=== PATIENT | female | born 1975 | race Caucasian/White ===

== ENCOUNTER → 2019-07-25 | Outpatient (CLI) | payer BC ==
--- NOTE | 2019-07-25 15:51 | PCVCIMAG ---
APPROVED REPORT Study performed: 07/25/2019 14:19:40 EXAM: Comprehensive 2D, Doppler, and color-flow Echocardiogram Patient Location: Echo lab Room #: 2Status: routine BSA: 2.01 HR: 80 bpmBP: 152/94 mmHg Rhythm: NSR Other Information Study Quality: Good Risk Factors: Cardiac Risk Factors: HTN, Hyperlipidemia Indications Abnormal ECG 2D Dimensions IVSd: 8.28 (7-11mm)LVOT Diam: 19.98 (18-24mm) LVDd: 43.73 mm PWd: 9.88 (7-11mm)Ascending Ao: 32.88 (22-36mm) LVDs: 31.34 (25-40mm) Left Atrium: 33.90 (27-40mm) Aortic Root: 30.68 mm LV Single Plane 4CH: 49.40 % LV Single Plane 2CH: 66.46 % Biplane EF: 59.0 % Volumes Left Atrial Volume (Systole) Single Plane 4CH: 63.80 mLSingle Plane 2CH: 48.28 mL Biplane LA Volume: 58.00 mLLA ESV Index: 29.00 mL/m2 Aortic Valve AoV Peak Asher.: 1.38 m/s AO Peak Gr.: 7.95 mmHg Mitral Valve E/A Ratio: 0.9 MV Decel. Time: 198.01 ms MV E Max Asher.: 1.09 m/s MV A Asher.: 1.20 m/s IVRT: 86.51 ms TDI E/Lateral E': 9.91E/Medial E': 13.63 Medial E' Asher.: 0.08 m/s Lateral E' Asher.: 0.11 m/s Pulmonary Valve PV Peak Asher.: 0.75 m/sPV Peak Gr.: 2.24 mmHg Pulmonary Vein P Vein S: 0.59 m/sP Vein A: 0.30 m/s P Vein D: 0.39 m/sP Vein A Dur.: 58.8 msec P Vein S/D Ratio: 1.51 Tricuspid Valve TR Peak Asher.: 2.15 m/s TR Peak Gr.: 18.43 mmHg TV Vmax: 0.57 m/sPA Pressure: 25.00 mmHg Left Ventricle The left ventricle is normal size. There is normal LV segmental wall motion. There is normal left ventricular wall thickness. Left ventricular systolic function is normal. The left ventricular ejection fraction is within the normal range. LVEF is 55-60%. The left ventricular diastolic function is normal. Right Ventricle The right ventricle is normal size. The right ventricular systolic function is normal. Atria The left atrium size is normal. The right atrium size is normal. Aortic Valve Aortic valve is trileaflet. The aortic valve is normal in structure and function. No aortic regurgitation is present. There is no aortic valvular stenosis. Mitral Valve The mitral valve is normal in structure. There is no mitral valve regurgitation noted. No evidence of mitral valve stenosis. Tricuspid Valve The tricuspid valve is normal in structure. Trace tricuspid regurgitation with a PA pressure of 25 mmHg. No pulmonary hypertension. Pulmonic Valve The pulmonary valve is normal in structure. There is no pulmonic valvular regurgitation. Great Vessels The aortic root is normal in size. The ascending aorta is normal in size. Aortic arch is normal in caliber. IVC is normal in size and collapses >50% with inspiration. Pericardium There is no pericardial effusion. There is no pleural effusion. <Conclusion> The left ventricle is normal size. There is normal left ventricular wall thickness. Left ventricular systolic function is normal. The right ventricle is normal size. The left atrium size is normal. The aortic valve is normal in structure and function. There is no mitral valve regurgitation noted. Trace tricuspid regurgitation with a PA pressure of 25 mmHg.
--- NOTE | 2019-07-25 16:25 | PCVCIMAG ---
APPROVED REPORT Study performed: 07/25/2019 15:05:11 Exam: Stress Echocardiogram Indication: Abn EKG Patient Location: Echo lab Stress Nurse: Judy Menard RN Room #: 2 Status: routine Ht: 5 ft 5 in HR: 102 bpm BP: 152/94 mmHg Rhythm: Sinus Tachycardia Medical History Medical History: HTN Cardiac Risk Factors: Hyperlipidemia, HTN Previous Cardiac Procedures: none Pretest Chest Pain Characteristics: No chest pain Exercise History: Physically active Procedure The patient underwent an Exercise Stress Test using the Jose Protocol. Blood pressure, heart rate, and EKG were monitored. An Echocardiogram was performed by sound engineering technician in four stages in quad fashion. At peak stress, four selected images were obtained and placed side by side with resting images for comparison. Stress Test Details Stress Test: Exercise stress testing was performed using a Jose protocol. HR Resting HR: 102 bpmMax Heart Rate (APMHR): 175 bpm Max HR Achieved: 196 bpmTarget HR (85% APMHR): 148 bpm % of APMHR: 112 Recovery HR: 106 bpm HR response to stress: Accelerated HR response to stress BP Resting BP: 152/94 mmHg Max BP: 192/80 mmHg Recovery BP: 134/78 mmHg BP response to stress: Normal blood pressure response to stress. ECG Resting ECG: Sinus Tachycardia Stress ECG: Sinus Rhythm, nonspecific ST-T abnormalities ST Change: Non-ischemic Arrhythmia: Rare PVCs Recovery ECG: Sinus Rhythm, nonspecific ST-T abnormalities Recovery ST Change: Non-ischemic Recovery ST Deviation: -1.45 mm Recovery Arrhythmia: rare PVCs Clinical Reason for Termination: Maximal effort Stress Symptoms: fatigue Exercise duration: 9 min 17 sec Highest Stage Achieved: Stage 4: 4.2 mph at 16% grade. Exercise capacity: 10.9 METs Overall Exercise Capacity for Age: Good Scale: Active Angina Score: None No complications. Pre-Stress Echo The resting Echocardiogram showed normal left ventricular contractility with an estimated Ejection Fraction of about 55-60%. The resting echocardiogram demonstrated normal wall motion in all wall segments. Normal wall motion in all segments on baseline images. Post-Stress Echo The stress Echocardiogram showed normal left ventricular contractility with an estimated Ejection Fraction of about 65-70%. Compared to rest, there were no stress-induced wall motion abnormalities. Normal augmentation of wall motion in all segments on post stress images. Clinical No clinical or ECG evidence for ischemia. Conclusion Clinical Response: Non-ischemic Exercise Capacity: Average Stress ECG Response: Non-ischemic Stress Echo Images: Non-ischemic No echocardiographic evidence for exercise induced ischemia. <Conclusion> No echocardiographic evidence for exercise induced ischemia.
== END | disposition home or self-care (01) ==
LOC: PCVCIMAG 13:53
PROVIDERS: ATTEND Internal Medicine Cardiovascular Disease
DX: R07.9 Chest pain, unspecified (principal); R94.31 Abnormal electrocardiogram [ECG] [EKG]; I10 Essential (primary) hypertension; E78.5 Hyperlipidemia, unspecified
CPT/HCPCS: 93306; 93351